=== PATIENT | male | born 1990 | race Caucasian/White ===

== ENCOUNTER 2017-04-24 06:10 | Emergency (ER) | payer SELFPAY ==
[2017-04-24] MEDS ORDERED: ONDANSETRON DISINTEGRATING 4 MG TAB ONE (06:16)
[2017-04-24] MEDS ORDERED: ONDANSETRON DISINTEGRATING 4 MG TAB PO ONE (06:18)
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
[2017-04-24 07:27] LABS: COLOR YELLOW; LEUKOCYTE ESTERASE,URINE NEGATIVE (NEGATIVE); NITRITE,URINE NEGATIVE (NEGATIVE)
[2017-04-24 07:39] LABS: MUCUS 3+ /lpf (NONE-1+); RENAL EPITHELIAL CELLS 1+ /hpf (NONE SEEN)
[2017-04-24 07:40] LABS: AMORPHOUS 1+ /hpf (NONE-1+); BACTERIA TRACE /hpf (NONE SEEN)
[2017-04-24 08:03] VITALS: BP 137/82; PULSE 92; RESP 20; TEMP 99.1; O2SAT 98
== END 2017-04-24 08:03 | disposition home or self-care (01) ==
LOC: CED 06:10
DX: S00.03XA Contusion of scalp, initial encounter (principal); Z87.891 Personal history of nicotine dependence; Y04.0XXA Assault by unarmed brawl or fight, initial encounter
CPT/HCPCS: 70450-PO; 81003-PO; 81015-PO